=== PATIENT | male | born 1985 | race Hispanic/Latino ===

== ENCOUNTER 2021-05-19 22:31 | Emergency (ER) | payer OTHER ==
[~2021-05-19] VITALS: Ht 172.7 cm; Wt 84.4 kg
[2021-05-19 22:33] VITALS: BP 146/85
[2021-05-19] MEDS ORDERED: HYDROXYZINE 25 MG TABLET PO ONE (23:00)
== END 2021-05-19 23:19 | disposition home or self-care (01) ==
LOC: EDH 22:31
DX: F41.1 Generalized anxiety disorder (principal)